=== PATIENT | male | born 1990 | race Hispanic/Latino ===

== ENCOUNTER 2025-02-19 11:53 | Emergency (ER) | payer OTHER, SELFPAY ==
[2025-02-19] VITALS (9 sets, daily range): BP systolic 121–130; BP diastolic 56–67; PULSE 77–116; RESP 18–25; TEMP 36.9; O2SAT 95–100; BMI 30.4
--- NOTE | 2025-02-19 12:13 | EKG_ITS ---
[address] [address] Test Date: 2025-02-19 Pat Name: Nilesh Colon Department: Room: Gender: Male [employer] Inspector: PHILIPPE : 1990 Requested By: Order Number: [id number] Reading MD: Jesus Rosales Measurements Intervals [place] Rate: 102 P: 17 VT: 156 QRS: 11 QRSD: 96 T: -10 QT: 342 QTc: 445 Interpretive Statements Sinus tachycardia Minimal voltage criteria for LVH, may be normal variant ( R in aVL ) Electronically Signed On 02-21-2025 17:25:16 PDT by Jesus Rosales
--- NOTE | 2025-02-19 15:39 | ED_ITS ---
HPI - Headache General Chief Complaint: Headache Stated Complaint: Bad headache, pressure in chest, dizziness Time Seen by Provider: 02/19/25 14:40 Mode of arrival: Family Vehicle History of Present Illness HPI Narrative: Patient is an adult male with a history of hypertension who presents with acute onset of a severe, diffuse headache upon awakening this morning, which subsequently progressed to neck pain, chest pressure, and transient palpitations. He also reports lightheadedness, dizziness, photophobia, phonophobia, and generalized myalgias. The headache was severe enough to prompt him to contact his medical center and the nurse hotline, who referred him to the emergency department. He denies any recent trauma, vision changes, cough, or congestion. He took 100 mg of ibuprofen around 5:45 AM with minimal relief. He also experienced a spontaneous nosebleed while in the waiting area, which he states is not typical for him. He denies any radiation of pain to the arms, fevers, or chills, but did feel hot earlier in the day. No significant past medical history aside from hypertension, and he monitors his blood pressure regularly. Pertinent positives: diffuse headache, neck pain, chest pressure, palpitations, lightheadedness, dizziness, photophobia, phonophobia, generalized myalgias, feeling hot earlier, spontaneous nosebleed. Pertinent negatives: no recent trauma, no vision changes, no cough, no congestion, no pain radiating to arms, no fevers, no chills. Medications: Blood pressure medication (unspecified), Past Medical History: Hypertension. Related Data Allergies Allergy/AdvReac Type Severity Reaction Status Date / Time No Known Drug Allergies Allergy Verified 02/19/25 12:11 Review of Systems Review of Systems Narrative: Constitutional: reports headache, lightheadedness, dizziness, generalized myalgias, and feeling hot earlier. Eyes: no vision changes. Ears/Nose/Throat: reports photophobia, phonophobia, and a spontaneous nosebleed; denies trauma to the nose. Respiratory: denies cough or congestion. Cardiac: reports chest pressure and transient palpitations. Gastrointestinal: no abdominal pain. Skin: no rash. Musculoskeletal: reports neck pain and generalized muscle soreness. Neurologic: no history of frequent headaches, no trauma, no radiation of pain to arms. Psychiatric: no mood change. Other: other Exam Narrative Exam Narrative: General: Alert and cooperative. Skin: Good turgor, no rash, unusual bruising or prominent lesions. Head: Normocephalic, atraumatic. HEENT: Pupils 3 mm, equal and reactive bilaterally; extraocular movements intact. No evidence of trauma to nose; spontaneous nosebleed reported. Mucous membranes moist. Neck: Supple, normal ROM. No nuchal rigidity, no midline tenderness. Heart: Normal heart sounds, no murmurs or extra heart sounds. Lungs: Clear to auscultation bilaterally, no wheezing. Abdomen: Non-distended, non-tender to palpation. Bowel sounds normal. No mass or hernia. Back: Spine normal without deformity or tenderness, no CVA tenderness. Extremities: No deformities, edema. Peripheral pulses intact. Neurologic: CN 2-12 normal. Normal facial sensation. Normal sensation and motor exam. Psychiatric: Oriented X3. Normal mood and affect. Initial Vital Signs Initial Vital Signs: Vital Signs Temperature 98.4 F 02/19/25 12:06 Pulse Rate 116 H 02/19/25 12:06 Respiratory Rate 18 02/19/25 12:06 Blood Pressure 130/67 02/19/25 12:06 Pulse Oximetry 97 02/19/25 12:06 Oxygen Delivery Method Room Air 02/19/25 12:06 Course Orders Ordered: ED Orders 02/19/25 12:13 EKG-12 Lead Stat 02/19/25 15:41 EKG-12 Lead Stat 02/19/25 16:21 CBC Auto Diff [Complete Blood Count AUTO DIFF] Stat CMP [Comprehensive Metabolic Panel] Stat 02/19/25 17:00 Respiratory Panel (Film Array) Stat Discontinued Medications Acetaminophen (Acetaminophen 325 Mg Tablet) 650 mg PO NOW ONE Stop: 02/19/25 15:38 Last Admin: 02/19/25 17:26 Dose: 650 mg Documented By: ELTON Diphenhydramine HCl (Diphenhydramine 50 Mg/Ml Vial) 25 mg IV NOW ONE Stop: 02/19/25 15:38 Last Admin: 02/19/25 17:02 Dose: Not Given Documented By: ELTON Lactated Ringer's (Lactated Ringers) 1,000 mls @ 1,000 mls/hr IV BOLUS ONE Stop: 02/19/25 16:36 Last Infusion: 02/19/25 17:33 Dose: Infused Documented By: Admin: 02/19/25 16:25 Dose: 1,000 mls/hr Documented By: ELTON Ketorolac Tromethamine (Ketorolac 30 Mg/Ml Vial) 15 mg IV NOW ONE Stop: 02/19/25 15:38 Last Admin: 02/19/25 16:25 Dose: 15 mg Documented By: ELTON Prochlorperazine (Prochlorperazine 10 Mg/2 Ml Vial) 5 mg IV NOW ONE Stop: 02/19/25 15:38 Last Admin: 02/19/25 17:03 Dose: Not Given Documented By: ELTON Vital Signs Vital signs: Vital Signs - 8 hr 02/19/25 15:44 02/19/25 15:45 02/19/25 15:45 Pulse Rate 90 84 Respiratory Rate Blood Pressure 121/66 Pulse Oximetry 98 100 02/19/25 16:00 02/19/25 16:00 02/19/25 16:30 Pulse Rate 80 80 Respiratory Rate 22 Blood Pressure 125/56 L Pulse Oximetry 99 100 02/19/25 17:00 02/19/25 17:30 02/19/25 18:00 Pulse Rate 80 77 89 Respiratory Rate 22 20 25 H Blood Pressure Pulse Oximetry 98 95 98 02/19/25 18:30 Pulse Rate 93 H Respiratory Rate Blood Pressure Pulse Oximetry 97 MDM - Headache Lab Data Lab results narrative: Patient's lab work boots were evaluated unfortunately show no significant abnormalities requiring intervention patient does not have significant leukocytosis, anemia, thrombocytopenia or abnormal electrolytes requiring ED intervention. Patient has negative respiratory viral panel testing 02/19/25 16:21 02/19/25 16:21 Labs: Lab Results 02/19/25 02/19/25 Range/Units 16:21 17:00 WBC 5.4 (4.5-11.0) X10^3/uL RBC 3.75 L (4.5-5.9) X10^6/uL Hgb 12.4 L (13.5-17.5) g/dL Hct 35.7 L (41-53) % MCV 95.4 (80-100) fL MCH 33.0 (26-34) PG MCHC 34.6 (30-36) % RDW 13.3 (11.6-14.8) % Plt Count 207 (150-400) X10^3/uL Neut % (Auto) 67.4 (50-75) % Lymph % (Auto) 22.8 L (25-40) % [place] % (Auto) 7.3 (3-14) % Eos % (Auto) 1.3 L (2-4) % Baso % (Auto) 1.2 (0-2) % Neut # (Auto) 3700 (4112-4010) /uL Lymph # (Auto) 1200 (9356-9631) /uL [place] # (Auto) 400 (0-900) /uL Eos # (Auto) 100 (0-450) /uL Baso # (Auto) 100 (0-100) /uL Sodium 136 L (137-145) mmol/L Potassium 3.9 (3.4-5.1) mmol/L Chloride 104 (98-107) mmol/L Carbon Dioxide 24 (22-32) mmol/L BUN 17 (9-20) mg/dL Creatinine 0.88 (0.66-1.25) mg/dL Estimated GFR > 60 (>60) mL/min BUN/Creatinine Ratio 19.3 (6-22) Glucose 82 (70-99) mg/dL Calcium 9.2 (8.4-10.2) mg/dL Total Bilirubin 0.7 (0.2-1.3) mg/dL AST 33 (17-59) IU/L ALT 33 (<50) IU/L Alkaline Phosphatase 56 (38-126) U/L Total Protein 7.0 (6.3-8.2) g/dL Albumin 4.7 (3.5-5.0) g/dL Globulin 2.3 (1.7-4.1) g/dL Albumin/Globulin Ratio 2.0 (1.0-2.8) Chlamy pneumoniae PCR Not detected (Not Detect) Adenovirus (PCR) Not detected (Not Detect) B. pertussis DNA (PCR) Not detected (Not Detect) B.parapertussis DNA PCR Not detected (Not Detecte) Coronavirus OC43 (PCR) Not detected (Not Detect) Coronavirus HKU1 (PCR) Not detected (Not Detect) Coronavirus 229E (PCR) Not detected (Not Detect) SARS-CoV-2 (PCR) Not detected (Not Detecte) Coronavirus NL63 (PCR) Not detected (Not Detect) Human Metapneumovir PCR Not detected (Not Detect) Influenza Type A (PCR) Not detected (Not Detect) Influenza Type B (PCR) Not detected (Not Detect) M. pneumoniae (PCR) Not detected (Not Detect) Parainfluenza 1 (PCR) Not detected (Not Detect) Parainfluenza 2 (PCR) Not detected (Not Detect) Parainfluenza 3 (PCR) Not detected (Not Detect) Parainfluenza 4 (PCR) Not detected (Not Detect) RSV (PCR) Not detected (Not Detect) Entero/Rhino (PCR) Not detected (Not Detect) ECG Data Interpretation: On independent evaluation of patient's EKG I see no signs of significant abnormality there is no ST segment elevation, depression or abnormalities meeting STEMI criteria rate is 102 MT interval is 156 QTC is 445 no signs of arrhythmia delta wave or other high-risk features for arrhythmia. MDM Narrative Medical decision making narrative: INITIAL EVALUATION AND PLAN: - Low suspicion for intracranial mass or hemorrhage based on history and exam. - Plan: - Laboratory studies - Infectious disease swab - Headache cocktail for symptom relief - Monitor blood pressure - Monitor for recurrent nosebleeds - Provide work note as requested if medically appropriate ED Course: The patient, an adult male with a history of hypertension, presented to the ED with acute onset of severe diffuse headache, neck pain, chest pressure, and transient palpitations, accompanied by lightheadedness, dizziness, photophobia, phonophobia, generalized myalgias, and a spontaneous nosebleed. Initial evaluation included a thorough physical examination, which revealed no signs of trauma, nuchal rigidity, or neurological deficits. Laboratory studies and an infectious disease swab were ordered to investigate potential underlying causes. Symptom relief was initiated with a headache cocktail, and the patient?s blood pressure was closely monitored due to his history of hypertension. Additionally, monitoring for recurrent nosebleeds was implemented. A work note was provided as requested, contingent on medical appropriateness. Differential Diagnoses: Headache, Nosebleed, Subarachnoid Hemorrhage, Hypertensive Emergency, Meningitis, Acute Coronary Syndrome, Sinusitis Complexity of Problems Addressed: The patient presents with acute onset of severe headache accompanied by systemic symptoms such as neck pain, chest pressure, transient palpitations, lightheadedness, dizziness, photophobia, phonophobia, and generalized myalgias. Additionally, the spontaneous nosebleed raises concern for potential underlying conditions such as hypertensive crisis, intracranial hemorrhage, or other life- threatening etiologies. While the physical exam and initial evaluation suggest low suspicion for intracranial mass or hemorrhage, the constellation of symptoms and the acute nature of the presentation necessitate careful monitoring and further diagnostic workup to rule out high-risk conditions. Ordered Labs: - infectious disease swab Patient coming in for progressively worsening headache now improving no nuchal rigidity no fevers no chills but patient does state that he has some generalized body ache, was told to come in by his [employer] for evaluation to make sure that he is not infectious also to be evaluated for the cause of his symptoms. Patient has normal neurological exam, story does not appear to be highly suspicious for a subarachnoid hemorrhage or intracranial mass, patient states that symptoms have been somewhat gradual in onset, has not passed out, symptoms improving with conservative migraine headache management. Patient has full range of motion in his neck no nuchal rigidity on my exam and is mentating appropriately very low suspicion for meningitis as the cause of his symptoms. Patient's lab work reassuring as above multiple reassessments show improvement in symptoms with complete resolution of his headache and negative respiratory swab. Patient discharged at this time with return precautions. Discharge Plan Departure Patient Disposition: Home Clinical Impression: Headache Instructions: DI for Headache Activity Restrictions/Additional Instructions: You were seen in the emergency department today unfortunately had reassuring lab work, EKG and we are able to get control of her headache with medications. If you have worsening symptoms please return to the emergency department for re- evaluation and further workup. Referrals: [facility] [Primary Care Provider, Family Practice] Stand Alone Forms: Patient Portal/API, Work Release Note
[2025-02-19] MEDS: LACTATED RINGERS 1,000 ML 1000 ML IV (16:25)
[2025-02-19] MEDS: KETOROLAC 30 MG/ML VIAL 15 MG IV (16:25)
[2025-02-19 16:28] LABS: Add Manual Diff / Slide Review NO; Basophils Absolute Auto 100 /uL (0-100); Basophils Percent Auto 1.2 % (0-2); Eosinophils Absolute Auto 100 /uL (0-450); Eosinophils Percent Auto 1.3 % (2-4); Hematocrit 35.7 % (41-53); Hemoglobin 12.4 g/dL (13.5-17.5); Lymphocytes Absolute Auto 1200 /uL (1100-4500); Lymphocytes Percent Auto 22.8 % (25-40); Mean Corpuscular HGB Conc 34.6 % (30-36); Mean Corpuscular Volume 95.4 fL (80-100); Monocytes Absolute Auto 400 /uL (0-900); Monocytes Percent Auto 7.3 % (3-14); Neutrophils Absolute Auto 3700 /uL (1500-7000); Neutrophils Percent Auto 67.4 % (50-75); Platelet Count 207 X10^3/uL (150-400); Red Blood Cell Count 3.75 X10^6/uL (4.5-5.9); Red Cell Distribution Width 13.3 % (11.6-14.8); White Blood Cell Count 5.4 X10^3/uL (4.5-11.0)
[2025-02-19 16:40] LABS: Alanine Aminotransferase 33 IU/L (<50); Albumin 4.7 g/dL (3.5-5.0); Alkaline Phosphatase 56 U/L (38-126); Aspartate Aminotransferase 33 IU/L (17-59); BUN Creatinine Ratio 19.3 (6-22); Bilirubin Total 0.7 mg/dL (0.2-1.3); Blood Urea Nitrogen 17 mg/dL (9-20); Calcium 9.2 mg/dL (8.4-10.2); Carbon Dioxide 24 mmol/L (22-32); Chloride 104 mmol/L (98-107); Estimated Glomerular Filt Rate > 60 mL/min (>60); Globulin 2.3 g/dL (1.7-4.1); Glucose 82 mg/dL (70-99); HEMOLYSIS < 15 (0-50); Potassium 3.9 mmol/L (3.4-5.1); Sodium 136 mmol/L (137-145)
--- NOTE | 2025-02-19 16:48 | PC.NURSE ---
Patient states that this AM they woke up with a headache, by 1030 it had gotten worse and they started having some chest tightness, some SOB and nausea. At this time patient reports that his headache has resolved just the chest tightness remains. The chest discomfort is substernal and reproducible with palpation. Was recently at [facility] for chest pain
[2025-02-19] MEDS: ACETAMINOPHEN 325 MG TABLET 650 MG PO (17:26)
[2025-02-19 18:18] LABS: Adenovirus Not Detected (Not Detect); B. parapertussis Not Detected (Not Detecte); Bordetella pertussis Not Detected (Not Detect); Chlamydophila pneumoniae Not Detected (Not Detect); Coronavirus 229E Not Detected (Not Detect); Coronavirus HKU1 Not Detected (Not Detect); Coronavirus NL 63 Not Detected (Not Detect); Coronavirus OC43 Not Detected (Not Detect); Human Metapneumovirus Not Detected (Not Detect); Human Rhinovirus/Enterovirus Not Detected (Not Detect); Influenza A Not Detected (Not Detect); Influenza B Not Detected (Not Detect); Mycoplasma pneumoniae Not Detected (Not Detect); Parainfluenza Virus 1 Not Detected (Not Detect); Parainfluenza Virus 2 Not Detected (Not Detect); Parainfluenza Virus 3 Not Detected (Not Detect); Parainfluenza Virus 4 Not Detected (Not Detect); Respiratory Syncytial Virus Not Detected (Not Detect); SARS- CoV-2 Not Detected (Not Detecte)
== END 2025-02-19 19:18 | disposition home or self-care (01) ==
PROVIDERS: Emergency Provider Emergency Medicine
DX: R51.9 Headache, unspecified (principal); M54.2 Cervicalgia; R07.89 Other chest pain; R00.2 Palpitations; R42 Dizziness and giddiness; H53.149 Visual discomfort, unspecified; M79.10 Myalgia, unspecified site; Z86.79 Personal history of other diseases of the circulatory system
CPT/HCPCS: 80053; 85025; 87633; 93005; 96361; 96374; 96375; 99284; J1885